=== PATIENT | female | born 1985 | race African-American/Black ===

== ENCOUNTER 2017-06-18 12:41 | Emergency (ER) | payer OTHER ==
[~2017-06-18] VITALS: Ht 157.5 cm; Wt 80.9 kg
[~2017-06-18 12:41] MED LIST: HYDR-4446 PO
[2017-06-18 12:55] VITALS: BP 123/81
--- NOTE | 2017-06-18 13:03 | NUR ---
Pt taken to bed 5.
--- NOTE | 2017-06-18 13:04 | NUR ---
Diana barnes in ED - 06/18/17 at 1350 by MED1 THERESE ROMANO EVALUATING PT AT BEDSIDE.
--- NOTE | 2017-06-18 13:04 | NUR ---
32F BIB SELF C/O RT KNEE PAIN, LOWER BACK, RT WRIST PAIN X 1 MONTH. PT STATES SEES SPECIALIST FOR RT KNEE PAIN; STATES NO RECENT TRAUMA OR INJURY TO SITES AT THIS TIME. HX: GERD. DENIES N/V/D; SKIN IS PINK/WARM/DRY; AAOX4 WITH EVEN AND STEADY GAIT; LUNGS CLEAR BL; HR EVEN AND REGULAR; PT DENIES ANY FEVER, CP, SOB, OR COUGH AT THIS TIME; PATIENT STATES PAIN OF 8/10 AT THIS TIME; VSS; PATIENT POSITIONED FOR COMFORT; HOB ELEVATED; BEDRAILS UP X2; BED DOWN. ER MD MADE AWARE OF PT STATUS.
--- NOTE | 2017-06-18 13:37 | NUR ---
PAIN 5/10 . PT STS : DON'T WANT PAIN MED AT THIS TIME.
[2017-06-18 13:50] VITALS: BP 122/86
== END 2017-06-18 13:50 | disposition home or self-care (01) ==
LOC: MED 12:41
DX: M54.5 Low back pain (principal); K21.9 Gastro-esophageal reflux disease without esophagitis; Z79.899 Other long term (current) drug therapy; Z88.8 Allergy status to other drugs, medicaments and biological substances
CPT/HCPCS: 99283

== ENCOUNTER 2017-09-30 09:41 | Emergency (ER) | payer OTHER ==
[~2017-09-30] VITALS: Ht 157.5 cm; Wt 79.5 kg
[~2017-09-30 09:41] MED LIST changes: +ACET-8386 PO; -HYDR-4446 PO
[2017-09-30 09:45] VITALS: BP 120/88
--- NOTE | 2017-09-30 09:58 | NUR ---
Patient to bed 02.
--- NOTE | 2017-09-30 10:14 | NUR ---
PATIENT PRESENTS TO ED WITH C/O FRONTAL / LEFT TEMPORAL POUNDING TYPE HEADACHE X 3 DAYS;DENIES N/V, NO DIZZINESS, NO RECENT INJURIES, DENIES PHOTOPHOBIA---FULL CLEAR SPEECH, AMBULATORY WITH STEADY GAIT;HX OF INSOMNIA, GERD, ANEMIA;RX OF PEPCID, SEROQUEL (NON COMPLIANT), DEPO-PROVERA . PT STATES SHE HAS BLURRY OF VISSION TOO;SKIN IS PINK/WARM/DRY; AAOX4; LUNGS CLEAR BL; HR EVEN AND REGULAR; PT DENIES ANY FEVER, CP, SOB, OR COUGH AT THIS TIME; PATIENT STATES PAIN OF 8/10 AT THIS TIME;PATIENT POSITIONED FOR COMFORT; HOB ELEVATED; BEDRAILS UP X2; BED DOWN. ALL MONITORS IN PLACED;ER MD MADE AWARE OF PT STATUS.
--- NOTE | 2017-09-30 10:24 | NUR ---
Dr. Wiggins evaluating patient at bedside.
--- NOTE | 2017-09-30 10:34 | NUR ---
Patient discharged with v/s stable. Written and verbal after care instructions given and explained. Patient alert, oriented and verbalized understanding of instructions. Ambulatory with to car. All questions addressed prior to discharge. ID band removed. Patient advised to follow up with PMD. Rx of FIORICET given. Patient educated on indication of medication including possible reaction and side effects. Opportunity to ask questions provided and answered.
[2017-09-30 10:35] VITALS: BP 135/79
== END 2017-09-30 10:34 | disposition home or self-care (01) ==
LOC: MED 09:41
DX: R51 Headache (principal); H53.149 Visual discomfort, unspecified; K21.9 Gastro-esophageal reflux disease without esophagitis; Z79.899 Other long term (current) drug therapy; Z88.8 Allergy status to other drugs, medicaments and biological substances
CPT/HCPCS: 99283

== ENCOUNTER 2017-11-11 10:40 | Emergency (ER) | payer OTHER ==
[~2017-11-11] VITALS: Ht 157.5 cm; Wt 79.9 kg
[2017-11-11 10:47] VITALS: BP 125/84
--- NOTE | 2017-11-11 11:28 | NUR ---
Received ALOX4 with pt stating that she is having flu like symptoms and has her baby with and states that he is having fever as well.
[2017-11-11 13:51] VITALS: BP 135/75
--- NOTE | 2017-11-11 13:53 | NUR ---
Patient discharged with v/s stable. Written and verbal after care instructions given and explained. Patient alert, oriented and verbalized understanding of instructions. Ambulatory with to home. All questions addressed prior to discharge. ID band removed. Patient advised to follow up with PMD. Rx of pREDNISONE given. Patient educated on indication of medication including possible reaction and side effects. Opportunity to ask questions provided and answered.
== END 2017-11-11 13:53 | disposition home or self-care (01) ==
LOC: MED 10:40
DX: J06.9 Acute upper respiratory infection, unspecified (principal); R03.0 Elevated blood-pressure reading, without diagnosis of hypertension; K21.9 Gastro-esophageal reflux disease without esophagitis; Z79.899 Other long term (current) drug therapy; Z88.8 Allergy status to other drugs, medicaments and biological substances
CPT/HCPCS: 99283

== ENCOUNTER 2018-02-10 09:40 | Emergency (ER) | payer OTHER ==
[~2018-02-10] VITALS: Ht 160 cm; Wt 82.6 kg
[2018-02-10 09:54] VITALS: BP 132/70
--- NOTE | 2018-02-10 10:03 | NUR ---
PT AMBULATED TO ER BED 10
--- NOTE | 2018-02-10 10:04 | NUR ---
33/F BIB FAMILY C/O LINDO & cold s/sx x4 days with cough and congestion. DENIES N/V/D; SKIN IS PINK/WARM/DRY; AAOX4 WITH EVEN AND STEADY GAIT; LUNGS CLEAR BL; HR EVEN AND REGULAR; PT DENIES ANY FEVER, CP, SOB, OR COUGH AT THIS TIME; PATIENT STATES PAIN OF8/10 AT THIS TIME.
--- NOTE | 2018-02-10 11:46 | NUR ---
Patient being reevaluated by DR SINGLETARY at bedside.
[2018-02-10 12:45] VITALS: BP 118/90
--- NOTE | 2018-02-10 12:45 | NUR ---
Patient discharged with v/s stable. Written and verbal after care instructions given and explained. Patient verbalized understanding. Ambulatory with steady gait. All questions addressed prior to discharge. Advised to follow up with PMD.
== END 2018-02-10 12:45 | disposition home or self-care (01) ==
LOC: MED 09:40
DX: J06.9 Acute upper respiratory infection, unspecified (principal); K21.9 Gastro-esophageal reflux disease without esophagitis; Z88.6 Allergy status to analgesic agent
CPT/HCPCS: 99283

== ENCOUNTER 2018-03-26 09:53 | Emergency (ER) | payer OTHER ==
[~2018-03-26] VITALS: Ht 160 cm; Wt 81.2 kg
--- NOTE | 2018-03-26 10:02 | NUR ---
TO ER BED 10
[2018-03-26] MEDS ORDERED: KETOROLAC 30 MG/ML VIAL IM ONE (10:10)
[2018-03-26] MEDS ORDERED: ACETAMINOPHEN EXTRA STRENGTH 500 MG TAB PO ONE (10:10)
--- NOTE | 2018-03-26 10:10 | NUR ---
33Y/F BIB SELF C/O LEFT HAND PAIN X 3 DAYS, DENIES TRAUMA/FALL. AAOX4 WITH EVEN AND STEADY GAIT; LUNGS CLEAR BL; HR EVEN AND REGULAR; PT DENIES ANY FEVER, CP, SOB, OR COUGH AT THIS TIME; PATIENT STATES PAIN OF 8/10 AT THIS TIME; VSS; PATIENT POSITIONED FOR COMFORT; HOB ELEVATED; BEDRAILS UP X 1; BED DOWN. ER MD MADE AWARE OF PT STATUS.
--- NOTE | 2018-03-26 10:10 | NUR ---
Patient being evaluated by physician at bedside.
[2018-03-26 10:12] VITALS: BP 131/78
[2018-03-26 10:58] VITALS: BP 130/76
== END 2018-03-26 10:58 | disposition home or self-care (01) ==
LOC: MED 09:53
DX: S63.502A Unspecified sprain of left wrist, initial encounter (principal); S90.122A Contusion of left lesser toe(s) without damage to nail, initial encounter; S90.121A Contusion of right lesser toe(s) without damage to nail, initial encounter; K21.9 Gastro-esophageal reflux disease without esophagitis; Z79.899 Other long term (current) drug therapy; Z88.8 Allergy status to other drugs, medicaments and biological substances; W50.0XXA Accidental hit or strike by another person, initial encounter; Y93.89 Activity, other specified; Y92.89 Other specified places as the place of occurrence of the external cause; Y99.8 Other external cause status
CPT/HCPCS: 29125; 73110; 73660; 81002; 81025; 99284; Q0092; J1885

== ENCOUNTER 2018-04-18 11:37 | Emergency (ER) | payer OTHER ==
[~2018-04-18] VITALS: Ht 157.5 cm; Wt 81.2 kg
[2018-04-18 11:43] VITALS: BP 127/76
--- NOTE | 2018-04-18 11:49 | NUR ---
PT AMBULATED TO BED 11
--- NOTE | 2018-04-18 12:23 | NUR ---
33 YO F BIB SELF W/ C/O DIFFUSE ABD PAIN FOR 3- 4 WEEKS. DENIES N/V/D OR TENDERNESS. REPORTS THE PAIN IS IN HER ENTIRE ABD, CONSTANT, 8-10/10 SHARP AND BURNING THAT RADIATES TO HER FLANKS/LOWER BACK. PT REPORTS HX OVARIAN CYSTS THAT FELT SIMILAR. NO APPETITE CHANGES. PT A&O X 4. GCS 15. CMS INTACT. RR EVEN AND UNLABORED. LUNGS BILAT CLEAR. ER MD KEBEDE NOTIFIED. PT NEEDS MET. SAFETY PRECAUTIONS IN PLACE. WILL CONTINUE TO MONITOR.
--- NOTE | 2018-04-18 13:12 | NUR ---
ER MD KEBEDE AT BEDSIDE AT THIS TIME.
[2018-04-18 14:02] LABS: BASOPHILS # (AUTO) 0.1 K/uL (0.00-0.22); BASOPHILS % (AUTO) 1.2 % (0.0-2.0); EOSINOPHILS # (AUTO) 0.3 K/uL (0-0.4); EOSINOPHILS % (AUTO) 4.2 % (0.0-4.0); HEMATOCRIT 39.8 % (36-48); HEMOGLOBIN 13.1 g/dL (12.0-16.0); LYMPHOCYTES # (AUTO) 2.6 K/uL (2.5-16.5); LYMPHOCYTES % (AUTO) 41.3 % (20.5-51.1); MEAN CORPUSCULAR HEMOGLOBIN 27 pg (27-31); MEAN CORPUSCULAR HGB CONC 33 g/dL (33-37); MEAN CORPUSCULAR VOLUME 82.9 fL (80-94); MONOCYTES # (AUTO) 0.4 K/uL (0.8-1.0); MONOCYTES % (AUTO) 6.7 % (1.7-9.3); NEUTROPHILS # (AUTO) 2.9 K/uL (1.8-7.7); NEUTROPHILS % (AUTO) 46.6 % (42.2-75.2); PLATELET COUNT (AUTO) 294 K/uL (140-450); WHITE BLOOD COUNT (AUTO) 6.2 K/uL (4.8-10.8)
[2018-04-18 14:21] LABS: ALBUMIN 3.8 g/dL (3.4-5.0); ANION GAP 9.7 (8-16); CARBON DIOXIDE 28.1 mmol/L (21-32); CREATININE 0.7 mg/dL (0.6-1.3); POTASSIUM 3.8 mmol/L (3.5-5.1); TOTAL BILIRUBIN 0.2 mg/dL (0.0-1.0)
[2018-04-18 14:26] LABS: APPEARANCE,URINE CLEAR (CLEAR); BILIRUBIN,URINE NEGATIVE (NEGATIVE); BLOOD, URINE TRACE-I (NEGATIVE); COLOR,URINE YELLOW (YELLOW); LEUKOCYTE ESTERASE ,URINE NEGATIVE (NEGATIVE); NITRITE, URINE NEGATIVE (NEGATIVE); PH,URINE 6.5 (5.0-9.0); UGLUCOSE NEGATIVE (NEGATIVE)
[2018-04-18 14:42] LABS: RBC,URINE 0-5 (RARE) /HPF (0-5); WBC,URINE 0-5 (RARE) /HPF (0-5)
--- NOTE | 2018-04-18 16:14 | NUR ---
Patient discharged with v/s stable. Written and verbal after care instructions given and explained. Patient alert, oriented and verbalized understanding of instructions. Ambulatory with steady gait. All questions addressed prior to discharge. ID band removed. Patient advised to follow up with PMD. Rx of PEPCID, COLACE, MIRALAX, AND ZOFRAN given. Patient educated on indication of medication including possible reaction and side effects. Opportunity to ask questions provided and answered.
[2018-04-18 16:16] VITALS: BP 122/78
== END 2018-04-18 16:14 | disposition home or self-care (01) ==
LOC: MED 11:37
DX: N83.201 Unspecified ovarian cyst, right side (principal); K59.00 Constipation, unspecified; K21.9 Gastro-esophageal reflux disease without esophagitis; K80.80 Other cholelithiasis without obstruction; Z88.8 Allergy status to other drugs, medicaments and biological substances; Z79.899 Other long term (current) drug therapy
CPT/HCPCS: 36415; 76705; 76830; 80053; 81001; 81025; 83690; 85025; 93976; 99285; Q0092

== ENCOUNTER 2018-04-26 20:26 | Emergency (ER) | payer OTHER ==
[~2018-04-26] VITALS: Ht 157.5 cm; Wt 81.2 kg
[2018-04-26 20:31] VITALS: BP 142/90
--- NOTE | 2018-04-26 20:38 | NUR ---
TO LOBBY A/W BED, MARIA TERESA WILLARD, MARIVEL NOTED
--- NOTE | 2018-04-26 20:40 | NUR ---
PT C/O L UPPER AND LOWER QUADRANT ABD PAIN 8/10 WORSENING TODAY. WAS SEEN HERE IN ER RECENTLY AND HAD IMAGING DONE THAT FOUND OVARIAN CYSTS BUT LEFT AMA, WAS LATER CALLED BY ED PHYSICIAN AND TOLD SHE NEEDED SURGERY. PATIENT STATES SHE "JUST WANTS TO KNOW IF THIS IS REAL AND DO I NEED SURGERY?" PATIENT IN NO ACUTE DISTRESS, ALERT AND ORIENTED, ON STRETCHER. WILL CONTINUE TO MONITOR CLOSELY.
--- NOTE | 2018-04-26 21:29 | NUR ---
PT TAKEN TO BED 11
[2018-04-26] MEDS ORDERED: NACL 0.9% 1,000 ML IV ONE (22:34)
[2018-04-26] MEDS ORDERED: MORPHINE SULFATE 4 MG/ML SYR IVP ONE (22:35)
--- NOTE | 2018-04-26 22:49 | NUR ---
PATIENT REFUSING IV AND MEDICATIONS. EDMD MADE AWARE.
[2018-04-26 23:29] LABS: BASOPHILS % (AUTO) 0.6 % (0.0-2.0); EOSINOPHILS # (AUTO) 0.2 K/uL (0-0.4); EOSINOPHILS % (AUTO) 2.8 % (0.0-4.0); HEMOGLOBIN 13.8 g/dL (12.0-16.0); LYMPHOCYTES # (AUTO) 3.2 K/uL (2.5-16.5); LYMPHOCYTES % (AUTO) 41.9 % (20.5-51.1); MEAN CORPUSCULAR HEMOGLOBIN 28 pg (27-31); MEAN CORPUSCULAR HGB CONC 34 g/dL (33-37); MONOCYTES # (AUTO) 0.5 K/uL (0.8-1.0); MONOCYTES % (AUTO) 6.7 % (1.7-9.3); NEUTROPHILS # (AUTO) 3.6 K/uL (1.8-7.7); PLATELET COUNT (AUTO) 347 K/uL (140-450); RED CELL DISTRIBUTION WIDTH 14.2 % (11.6-13.7); WHITE BLOOD COUNT (AUTO) 7.6 K/uL (4.8-10.8)
[2018-04-26 23:33] LABS: APPEARANCE,URINE CLEAR (CLEAR); BILIRUBIN,URINE NEGATIVE (NEGATIVE); BLOOD, URINE TRACE-I (NEGATIVE); COLOR,URINE YELLOW (YELLOW); LEUKOCYTE ESTERASE ,URINE NEGATIVE (NEGATIVE); NITRITE, URINE NEGATIVE (NEGATIVE); PH,URINE 5.5 (5.0-9.0); UGLUCOSE NEGATIVE (NEGATIVE)
[2018-04-26 23:39] LABS: ANION GAP 11.6 (8-16); CREATININE 0.7 mg/dL (0.6-1.3); POTASSIUM 3.6 mmol/L (3.5-5.1)
[2018-04-26 23:45] LABS: ALBUMIN 4.1 g/dL (3.4-5.0); TOTAL BILIRUBIN 0.3 mg/dL (0.0-1.0)
[2018-04-26 23:49] LABS: RBC,URINE 0-5 (RARE) /HPF (0-5); WBC,URINE NONE SEEN /HPF (0-5)
[2018-04-26 23:50] LABS: CALCIUM OXALATE CRYSTALS,UR 0-10 /HPF (None Seen)
[2018-04-27 01:50] VITALS: BP 122/72
--- NOTE | 2018-04-27 01:50 | NUR ---
Patient discharged with v/s stable. Written and verbal after care instructions given and explained. Patient alert, oriented and verbalized understanding of instructions. Ambulatory with steady gait. All questions addressed prior to discharge. ID band removed. Patient advised to follow up with PMD. Rx of NORCO AND ZOFRAN given. Patient educated on indication of medication including possible reaction and side effects. Opportunity to ask questions provided and answered.
== END 2018-04-27 01:50 | disposition home or self-care (01) ==
LOC: MED 20:26
DX: K80.20 Calculus of gallbladder without cholecystitis without obstruction (principal); K21.9 Gastro-esophageal reflux disease without esophagitis; Z88.8 Allergy status to other drugs, medicaments and biological substances
CPT/HCPCS: 36415; 76700; 80053; 81001; 81025; 83690; 85025; 99285; Q0092

== ENCOUNTER 2018-05-18 17:22 | Emergency (ER) | payer OTHER ==
[~2018-05-18] VITALS: Ht 127 cm; Wt 83.0 kg
[2018-05-18 17:47] VITALS: BP 125/92
--- NOTE | 2018-05-18 18:02 | NUR ---
PT AMBULATES TO BED 10
--- NOTE | 2018-05-18 18:07 | NUR ---
PER PATIENT, JACQUIEJuan TOLD HER SHE CANT GO FOR SURGERY BECAUSE SHE HAS MRSA. WANTS TO BE TESTED TODAY. ERMD AWARE
--- NOTE | 2018-05-18 18:17 | NUR ---
DR. BUTTERFIELD AT BEDSIDE ASSESSING PATIENT. SPECIMEN COLLECTED
[2018-05-18 18:53] VITALS: BP 120/80
--- NOTE | 2018-05-18 18:53 | NUR ---
Patient discharged with v/s stable. Written and verbal after care instructions given and explained. Patient verbalized understanding. with . All questions addressed prior to discharge. Advised to follow up with PMD.
== END 2018-05-18 18:53 | disposition home or self-care (01) ==
LOC: MED 17:22
DX: Z22.322 Carrier or suspected carrier of Methicillin resistant Staphylococcus aureus (principal); K21.9 Gastro-esophageal reflux disease without esophagitis; Z79.899 Other long term (current) drug therapy; Z88.8 Allergy status to other drugs, medicaments and biological substances
CPT/HCPCS: 87081; 99283

== ENCOUNTER 2018-06-04 19:41 | Emergency (ER) | payer OTHER ==
[~2018-06-04] VITALS: Ht 157.5 cm; Wt 80.7 kg
[2018-06-04 19:46] VITALS: BP 132/81
[2018-06-04] MEDS ORDERED: HYDROcodone/APAP 5/325 MG 1 TAB TAB PO ONE (20:25)
[2018-06-04 20:55] LABS: BASOPHILS # (AUTO) 0.1 K/uL (0.00-0.22); BASOPHILS % (AUTO) 1.3 % (0.0-2.0); EOSINOPHILS # (AUTO) 0.3 K/uL (0-0.4); EOSINOPHILS % (AUTO) 3.9 % (0.0-4.0); HEMATOCRIT 39.7 % (36-48); HEMOGLOBIN 12.9 g/dL (12.0-16.0); LYMPHOCYTES % (AUTO) 41.2 % (20.5-51.1); MEAN CORPUSCULAR HEMOGLOBIN 27 pg (27-31); MEAN CORPUSCULAR HGB CONC 33 g/dL (33-37); MEAN CORPUSCULAR VOLUME 82.9 fL (80-94); MONOCYTES # (AUTO) 0.3 K/uL (0.8-1.0); MONOCYTES % (AUTO) 4.6 % (1.7-9.3); NEUTROPHILS # (AUTO) 3.6 K/uL (1.8-7.7); PLATELET COUNT (AUTO) 316 K/uL (140-450); RED BLOOD CELL COUNT(AUTO) 4.79 MIL/uL (4.20-5.40); RED CELL DISTRIBUTION WIDTH 14.6 % (11.6-13.7); WHITE BLOOD COUNT (AUTO) 7.3 K/uL (4.8-10.8)
[2018-06-04 21:12] LABS: ALBUMIN 4.2 g/dL (3.4-5.0); ANION GAP 14.1 (8-16); CARBON DIOXIDE 26.4 mmol/L (21-32); CREATININE 0.8 mg/dL (0.6-1.3); POTASSIUM 3.5 mmol/L (3.5-5.1); TOTAL BILIRUBIN 0.4 mg/dL (0.0-1.0)
[2018-06-04 21:16] LABS: APPEARANCE,URINE CLEAR (CLEAR); BILIRUBIN,URINE NEGATIVE (NEGATIVE); BLOOD, URINE TRACE-I (NEGATIVE); COLOR,URINE YELLOW (YELLOW); LEUKOCYTE ESTERASE ,URINE NEGATIVE (NEGATIVE); NITRITE, URINE NEGATIVE (NEGATIVE); UGLUCOSE NEGATIVE (NEGATIVE)
[2018-06-04 21:26] LABS: RBC,URINE 0-5 (RARE) /HPF (0-5)
[2018-06-04 22:47] VITALS: BP 128/75
== END 2018-06-04 22:49 | disposition home or self-care (01) ==
LOC: MED 19:41
DX: K80.20 Calculus of gallbladder without cholecystitis without obstruction (principal); K21.9 Gastro-esophageal reflux disease without esophagitis; Z88.6 Allergy status to analgesic agent
CPT/HCPCS: 36415; 76705; 80053; 81001; 81025; 83690; 85025; 87086; 99285; Q0092

== ENCOUNTER 2018-09-16 15:23 | Emergency (ER) | payer OTHER ==
[~2018-09-16] VITALS: Ht 160 cm; Wt 83.5 kg
[2018-09-16 15:38] VITALS: BP 123/88
--- NOTE | 2018-09-16 17:21 | NUR ---
33 YO F BIB SELF W/C/O SOB AND CP SINCE 199. PT STATS R AXILLARY PAIN THAT RADIATES ACROSS RIGHT CHEST TO L SHOULDER. PT STATES FALLING AND LANDING ON FOREARMS ON MONDAY , NO OTHER RECENT TRAUMA OR INJURY . PT WITH GAURDING OF CHEST. -DIAPHRISIS, BRISK CAP REFILL, TACHYCARDIA AT THIS TIME 106. +N/V. PT ALSO C/O LEFT LOWER ABDOMINAL PAIN RADIATING TO LOWER BACK X TODAY. HX: ACID REFLUX, CHOLECYSTECTOMY. MEDS: ABX (UTI), MUSCLE RELAXER AT 299. SKIN IS PINK/WARM/DRY; AAOX4 WITH EVEN AND STEADY GAIT; LUNGS CLEAR BL. PATIENT STATES PAIN 10/ AT THIS TIME; VSS; PATIENT POSITIONED FOR COMFORT; HOB ELEVATED; BEDRAILS UP X2; BED DOWN. ER MADE AWARE OF PT STATUS. Addendum: 09/16/18 at 1901 by [email or web address] PT STATED " I DON'T WANT PAIN MED".
[2018-09-16 18:05] LABS: BASOPHILS # (AUTO) 0.1 K/uL (0.00-0.22); BASOPHILS % (AUTO) 0.5 % (0.0-2.0); EOSINOPHILS # (AUTO) 0.1 K/uL (0-0.4); EOSINOPHILS % (AUTO) 0.7 % (0.0-4.0); HEMATOCRIT 40.6 % (36-48); HEMOGLOBIN 13.3 g/dL (12.0-16.0); LYMPHOCYTES # (AUTO) 1.6 K/uL (2.5-16.5); LYMPHOCYTES % (AUTO) 13.1 % (20.5-51.1); MEAN CORPUSCULAR HEMOGLOBIN 27 pg (27-31); MEAN CORPUSCULAR HGB CONC 33 g/dL (33-37); MEAN CORPUSCULAR VOLUME 81.9 fL (80-94); MONOCYTES # (AUTO) 0.8 K/uL (0.8-1.0); MONOCYTES % (AUTO) 6.3 % (1.7-9.3); NEUTROPHILS # (AUTO) 9.7 K/uL (1.8-7.7); NEUTROPHILS % (AUTO) 79.4 % (42.2-75.2); PLATELET COUNT (AUTO) 298 K/uL (140-450); RED BLOOD CELL COUNT(AUTO) 4.96 MIL/uL (4.20-5.40); RED CELL DISTRIBUTION WIDTH 13.8 % (11.6-13.7); WHITE BLOOD COUNT (AUTO) 12.2 K/uL (4.8-10.8)
[2018-09-16 18:21] LABS: ANION GAP 16.5 (8-16); CARBON DIOXIDE 25.4 mmol/L (21-32); CREATININE 0.8 mg/dL (0.6-1.3); POTASSIUM 3.9 mmol/L (3.5-5.1); PROTHROMBIN TIME 10.4 secs (10.8-13.4)
[2018-09-16 18:26] LABS: ALBUMIN 4.1 g/dL (3.4-5.0); TOTAL BILIRUBIN 0.8 mg/dL (0.0-1.0)
--- NOTE | 2018-09-16 19:06 | NUR ---
Pt report given to EFRAIN KERN. Transfer of care at this time.
--- NOTE | 2018-09-16 19:07 | NUR ---
RECEIVED REPORT FROM MOHAMUD KERN. TRANSFER OF CARE AT THIS TIME.
--- NOTE | 2018-09-16 19:10 | NUR ---
PATIENT RESTING AT THIS TIME. NO SIGNS OF DISTRESS.
[2018-09-16 19:45] VITALS: BP 138/82
--- NOTE | 2018-09-16 19:45 | NUR ---
Patient discharged with v/s stable. Written and verbal after care instructions given and explained. Patient alert, oriented and verbalized understanding of instructions. Ambulatory with steady gait. All questions addressed prior to discharge. ID band removed. Patient advised to follow up with PMD. Rx of VOLTAREN XR 100MG given. Patient educated on indication of medication including possible reaction and side effects. Opportunity to ask questions provided and answered.
== END 2018-09-16 19:45 | disposition home or self-care (01) ==
LOC: MED 15:23
DX: S80.01XA Contusion of right knee, initial encounter (principal); K21.9 Gastro-esophageal reflux disease without esophagitis; Z90.49 Acquired absence of other specified parts of digestive tract; Z88.6 Allergy status to analgesic agent; Z79.1 Long term (current) use of non-steroidal anti-inflammatories (NSAID); W18.30XA Fall on same level, unspecified, initial encounter; Y93.89 Activity, other specified; Y92.89 Other specified places as the place of occurrence of the external cause; Y99.8 Other external cause status
CPT/HCPCS: 36415; 71045; 73562; 80053; 81002; 81025; 82550; 84484; 85025; 85379; 85610; 85730; 93005; 99285; Q0092

== ENCOUNTER 2021-01-29 15:49 | Emergency (ER) | payer OTHER ==
[~2021-01-29] VITALS: Ht 157.5 cm; Wt 85.7 kg
[2021-01-29 15:56] VITALS: BP 119/81
--- NOTE | 2021-01-29 16:10 | NUR ---
PATIENT AMBULATED TO BED 11.
--- NOTE | 2021-01-29 16:12 | NUR ---
36 Y/O FEMALE C/O 08/29 LEFT BREAST/ CHEST PAIN S/P FALL X 3 WEEKS. PT STATES PT STATES TO LEFT BREAST NIPPLE TO AXILLAE. PT STATES HE TOOK TYNENOL WITH NO RELIEF. PMH: C SECTIONS, R ARM & R KNEE SURGERY, GALL BLADDER REMOVAL ALLERGIES TO IBUPROFEN
[2021-01-29] MEDS ORDERED: ACETAMINOPHEN EXTRA STRENGTH 500 MG TAB PO ONE (16:30)
--- NOTE | 2021-01-29 16:35 | NUR ---
Dr. Souza at pt bedside for further evaluation.
[2021-01-29] MEDS ORDERED: ACET-8386 PO (16:50)
--- NOTE | 2021-01-29 16:56 | NUR ---
US tech at pt bedside.
[2021-01-29] MEDS ORDERED: CEPH500C16 PO (17:40)
[2021-01-29 17:58] VITALS: BP 119/81
--- NOTE | 2021-01-29 17:58 | NUR ---
Patient discharged with v/s stable. Written and verbal after care instructions given and explained. Patient alert, oriented and verbalized understanding of instructions. Ambulatory with steady gait. All questions addressed prior to discharge. ID band removed. Patient advised to follow up with PMD. Rx of HYRDROCODONE-ACETAMINOPHEN 5MG-325MG PO Q6H PRN PAIN, AND KEFLEX 500MG TID FOR 10DAYS given. Patient educated on indication of medication including possible reaction and side effects. Opportunity to ask questions provided and answered.
== END 2021-01-29 17:58 | disposition home or self-care (01) ==
LOC: MED 15:49
DX: N60.02 Solitary cyst of left breast (principal); K21.9 Gastro-esophageal reflux disease without esophagitis; Z88.8 Allergy status to other drugs, medicaments and biological substances; Z90.49 Acquired absence of other specified parts of digestive tract
CPT/HCPCS: 76641; 99284

== ENCOUNTER 2022-04-02 12:12 | Emergency (ER) | payer OTHER ==
[~2022-04-02] VITALS: Ht 157.5 cm; Wt 93.9 kg
[~2022-04-02 12:12] MED LIST changes: +CEPH500C16 PO
[2022-04-02 12:35] VITALS: BP 134/91
--- NOTE | 2022-04-02 12:36 | NUR ---
PT AMBULATED TO ER BED 11 FOR BEDSIDE TRIAGE.
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
--- NOTE | 2022-04-02 12:40 | NUR ---
YARELI RODRIGUEZ WITH PT FOR FURTHER EVALUATION.
[2022-04-02] MEDS ORDERED: HYDROcodone/APAP 5/325 MG 1 TAB TAB PO ONE (12:50)
--- NOTE | 2022-04-02 13:07 | NUR ---
PO PAIN MEDS GIVEN-NADR AT THIS TIME
[2022-04-02] MEDS ORDERED: ACET-8386 PO (13:36)
[2022-04-02 13:51] VITALS: BP 121/85
== END 2022-04-02 13:51 | disposition home or self-care (01) ==
LOC: MED 12:12
DX: M79.18 Myalgia, other site (principal); M25.561 Pain in right knee; K21.9 Gastro-esophageal reflux disease without esophagitis; Z79.2 Long term (current) use of antibiotics; Z79.891 Long term (current) use of opiate analgesic; Z88.6 Allergy status to analgesic agent; V89.2XXA Person injured in unspecified motor-vehicle accident, traffic, initial encounter; Y93.89 Activity, other specified; Y92.410 Unspecified street and highway as the place of occurrence of the external cause; Y99.8 Other external cause status
CPT/HCPCS: 73562; 99283

== ENCOUNTER 2024-01-08 10:09 | Emergency (ER) | payer OTHER ==
[~2024-01-08] VITALS: Ht 160 cm; Wt 91.2 kg
[~2024-01-08 10:09] MED LIST changes: -ACET-8386 PO; +ACET-8905 PO
[2024-01-08 10:18] VITALS: BP 149/99; PULSE 98; RESP 18; TEMP 98.8; O2SAT 98
[2024-01-08] MEDS: diazePAM 5 MG TAB PO ONE (11:11)
[2024-01-08 11:36] LABS: BASOPHILS # (AUTO) 0.1 K/uL (0.00-0.22); BASOPHILS % (AUTO) 1.6 % (0.0-2.0); EOSINOPHILS # (AUTO) 0.2 K/uL (0-0.4); EOSINOPHILS % (AUTO) 3.2 % (0.0-4.0); HEMATOCRIT 40.1 % (36-48); HEMOGLOBIN 13.7 g/dL (12.0-16.0); LYMPHOCYTES % (AUTO) 33.9 % (20.5-51.1); MEAN CORPUSCULAR HEMOGLOBIN 28 pg (27-31); MEAN CORPUSCULAR HGB CONC 34 g/dL (33-37); MEAN CORPUSCULAR VOLUME 82.8 fL (80-94); MONOCYTES # (AUTO) 0.4 K/uL (0.8-1.0); MONOCYTES % (AUTO) 6.2 % (1.7-9.3); NEUTROPHILS # (AUTO) 3.3 K/uL (1.8-7.7); NEUTROPHILS % (AUTO) 55.1 % (42.2-75.2); PLATELET COUNT (AUTO) 351 K/uL (140-450); RED BLOOD CELL COUNT(AUTO) 4.85 MIL/uL (4.20-5.40); RED CELL DISTRIBUTION WIDTH 14.3 % (11.6-13.7); WHITE BLOOD COUNT (AUTO) 5.9 K/uL (4.8-10.8)
[2024-01-08 12:06] LABS: ALANINE AMINOTRANSFERASE 17 U/L (12-78); ALBUMIN 3.9 g/dL (3.4-5.0); ALKALINE PHOSPHATASE 84 U/L (50-136); ASPARTATE AMINOTRANSFERASE 13 U/L (15-37); BILIRUBIN,DIRECT 0.1 mg/dL (0.0-0.3); LIPASE 24 U/L (16-77); TOTAL BILIRUBIN 0.6 mg/dL (0.0-1.0); TOTAL PROTEIN, SERUM 9.4 g/dL (6.4-8.2)
[2024-01-08] MEDS ORDERED: CYCL-711 PO (12:59)
[2024-01-08 13:25] VITALS: BP 138/90; PULSE 86; RESP 18; TEMP 98.8; O2SAT 99
== END 2024-01-08 13:25 | disposition home or self-care (01) ==
LOC: MED 10:09
DX: R07.89 Other chest pain (principal); M54.6 Pain in thoracic spine; K21.9 Gastro-esophageal reflux disease without esophagitis; Z79.1 Long term (current) use of non-steroidal anti-inflammatories (NSAID); Z79.899 Other long term (current) drug therapy
CPT/HCPCS: 36415; 71045; 76641; 80076; 83690; 84484; 85025; 85379; 93005; 99285; Q0092

== ENCOUNTER 2024-03-04 11:59 | Emergency (ER) | payer OTHER ==
[~2024-03-04] VITALS: Ht 160 cm; Wt 92.5 kg
[~2024-03-04 11:59] MED LIST changes: +CYCL-711 PO
[2024-03-04 12:34] VITALS: BP 128/76; PULSE 78; RESP 18; TEMP 97.3; O2SAT 100
[2024-03-04 13:24] VITALS: BP 124/78; PULSE 82; RESP 22; O2SAT 98
[2024-03-04] MEDS ORDERED: ACET-503 PO (15:27)
== END 2024-03-04 15:39 | disposition home or self-care (01) ==
LOC: MED 11:59
DX: M25.561 Pain in right knee (principal); R22.41 Localized swelling, mass and lump, right lower limb; I10 Essential (primary) hypertension; K21.9 Gastro-esophageal reflux disease without esophagitis; Z79.1 Long term (current) use of non-steroidal anti-inflammatories (NSAID); Z79.899 Other long term (current) drug therapy; Z90.49 Acquired absence of other specified parts of digestive tract
CPT/HCPCS: 71045; 81025; 93971; 99284; Q0092; 93005

== ENCOUNTER 2024-03-24 12:55 | Emergency (ER) | payer OTHER ==
[~2024-03-24] VITALS: Ht 172.7 cm; Wt 93.4 kg
[~2024-03-24 12:55] MED LIST changes: +ACET-503 PO
[2024-03-24 12:58] VITALS: BP 134/84; PULSE 82; RESP 19; TEMP 98.4; O2SAT 98
[2024-03-24 13:51] LABS: BASOPHILS # (AUTO) 0.2 K/uL (0.00-0.22); BASOPHILS % (AUTO) 2.8 % (0.0-2.0); EOSINOPHILS # (AUTO) 0.5 K/uL (0-0.4); EOSINOPHILS % (AUTO) 8.4 % (0.0-4.0); HEMATOCRIT 41.9 % (36-48); HEMOGLOBIN 14.5 g/dL (12.0-16.0); LYMPHOCYTES # (AUTO) 2.3 K/uL (2.5-16.5); LYMPHOCYTES % (AUTO) 35.6 % (20.5-51.1); MEAN CORPUSCULAR HEMOGLOBIN 29 pg (27-31); MEAN CORPUSCULAR HGB CONC 35 g/dL (33-37); MEAN CORPUSCULAR VOLUME 82.4 fL (80-94); MONOCYTES # (AUTO) 0.3 K/uL (0.8-1.0); MONOCYTES % (AUTO) 4.2 % (1.7-9.3); NEUTROPHILS # (AUTO) 3.2 K/uL (1.8-7.7); PLATELET COUNT (AUTO) 329 K/uL (140-450); RED BLOOD CELL COUNT(AUTO) 5.09 MIL/uL (4.20-5.40); RED CELL DISTRIBUTION WIDTH 14.1 % (11.6-13.7); WHITE BLOOD COUNT (AUTO) 6.5 K/uL (4.8-10.8)
[2024-03-24 14:24] LABS: ALBUMIN 4.4 g/dL (3.4-5.0); ANION GAP 11.3 (8-16); CALCIUM 9.1 mg/dL (8.5-10.1); CARBON DIOXIDE 26.7 mmol/L (21-32); CREATININE 0.8 mg/dL (0.6-1.3); TOTAL BILIRUBIN 0.7 mg/dL (0.0-1.0); TOTAL PROTEIN, SERUM 8.6 g/dL (6.4-8.2)
[2024-03-24 15:04] VITALS: BP 125/84; PULSE 84; RESP 19; TEMP 98.4; O2SAT 98
[2024-03-24] MEDS ORDERED: ATA25 PO (15:08)
== END 2024-03-24 15:28 | disposition home or self-care (01) ==
LOC: MED 12:55
DX: R07.89 Other chest pain (principal); R22.42 Localized swelling, mass and lump, left lower limb; M79.672 Pain in left foot; K21.9 Gastro-esophageal reflux disease without esophagitis; I10 Essential (primary) hypertension; Z79.1 Long term (current) use of non-steroidal anti-inflammatories (NSAID); Z79.899 Other long term (current) drug therapy
CPT/HCPCS: 36415; 71045; 80053; 84484; 85025; 93005; 93971; 99285; Q0092

== ENCOUNTER 2024-05-02 19:08 | Emergency (ER) | payer OTHER ==
[~2024-05-02] VITALS: Ht 160 cm; Wt 90.3 kg
[~2024-05-02 19:08] MED LIST changes: +ATA25 PO
[2024-05-02 19:21] VITALS: BP 156/102; PULSE 82; RESP 20; TEMP 98.4; O2SAT 100
[2024-05-02 20:22] LABS: APPEARANCE,URINE CLEAR (CLEAR); BILIRUBIN,URINE NEGATIVE (NEGATIVE); BLOOD, URINE 3+ (NEGATIVE); COLOR,URINE YELLOW (YELLOW); LEUKOCYTE ESTERASE ,URINE NEGATIVE (NEGATIVE); NITRITE, URINE NEGATIVE (NEGATIVE); PROTEIN,URINE NEGATIVE (NEGATIVE); UGLUCOSE NEGATIVE (NEGATIVE); UROBILINOGEN,URINE 0.2 EU/dL (0.2 - 1)
[2024-05-02 20:37] LABS: BACTERIA,URINE 10-30 (MOD) /HPF (None Seen); SQUAMOUS EPITHELIAL CELL,UR 4-10 (MOD) /LPF (0-3 (FEW)); WBC,URINE 0-5 /HPF (0-5)
[2024-05-03] MEDS ORDERED: PRED20TA5 PO (20:30)
[2024-05-03] MEDS ORDERED: DIPH25TA53 PO (20:30)
[2024-05-03] MEDS ORDERED: ALPR1TAB2 PO (20:52)
== END 2024-05-02 21:16 | disposition home or self-care (01) ==
LOC: MED 19:08
DX: R10.33 Periumbilical pain (principal); N93.9 Abnormal uterine and vaginal bleeding, unspecified; J02.9 Acute pharyngitis, unspecified; K21.9 Gastro-esophageal reflux disease without esophagitis; I10 Essential (primary) hypertension; Z98.890 Other specified postprocedural states; Z90.49 Acquired absence of other specified parts of digestive tract; Z79.1 Long term (current) use of non-steroidal anti-inflammatories (NSAID); Z79.2 Long term (current) use of antibiotics; Z79.899 Other long term (current) drug therapy; Z88.6 Allergy status to analgesic agent
CPT/HCPCS: 81001; 81025; 87086; 99283

== ENCOUNTER 2024-05-03 19:10 | Emergency (ER) | payer OTHER ==
[~2024-05-03] VITALS: Ht 160 cm; Wt 90.3 kg
[2024-05-03 19:17] VITALS: BP 181/109; PULSE 113; RESP 18; TEMP 97.9; O2SAT 100
[2024-05-03] MEDS: lisinopriL 20 MG TAB PO ONE (19:52)
[2024-05-03 19:53] VITALS: BP 180/92; PULSE 113; RESP 16
[2024-05-03 19:54] LABS: BASOPHILS # (AUTO) 0.1 K/uL (0.00-0.22); BASOPHILS % (AUTO) 0.9 % (0.0-2.0); EOSINOPHILS # (AUTO) 0.6 K/uL (0-0.4); EOSINOPHILS % (AUTO) 6.6 % (0.0-4.0); LYMPHOCYTES % (AUTO) 44.2 % (20.5-51.1); MEAN CORPUSCULAR HEMOGLOBIN 28 pg (27-31); MEAN CORPUSCULAR HGB CONC 33 g/dL (33-37); MEAN CORPUSCULAR VOLUME 83.3 fL (80-94); MONOCYTES # (AUTO) 0.6 K/uL (0.8-1.0); MONOCYTES % (AUTO) 6.5 % (1.7-9.3); NEUTROPHILS # (AUTO) 3.8 K/uL (1.8-7.7); NEUTROPHILS % (AUTO) 41.8 % (42.2-75.2); PLATELET COUNT (AUTO) 364 K/uL (140-450); RED BLOOD CELL COUNT(AUTO) 4.68 MIL/uL (4.20-5.40); RED CELL DISTRIBUTION WIDTH 14.1 % (11.6-13.7); WHITE BLOOD COUNT (AUTO) 9.2 K/uL (4.8-10.8)
[2024-05-03] MEDS: NACL 0.9% 1,000 ML IV ONE (20:03)
[2024-05-03 20:08] VITALS: O2SAT 100
[2024-05-03 20:17] LABS: ANION GAP 13.8 (8-16); CALCIUM 9.2 mg/dL (8.5-10.1); CARBON DIOXIDE 26.9 mmol/L (21-32); POTASSIUM 3.7 mmol/L (3.5-5.1)
[2024-05-03] MEDS ORDERED: DIPH25TA53 PO (20:30)
[2024-05-03] MEDS ORDERED: PRED20TA5 PO (20:30)
[2024-05-03] MEDS ORDERED: ALPR1TAB2 PO (20:52)
== END 2024-05-03 21:19 | disposition home or self-care (01) ==
LOC: MED 19:10
DX: N93.9 Abnormal uterine and vaginal bleeding, unspecified (principal); R21 Rash and other nonspecific skin eruption; R11.10 Vomiting, unspecified; R10.30 Lower abdominal pain, unspecified; R42 Dizziness and giddiness; L29.9 Pruritus, unspecified; K21.9 Gastro-esophageal reflux disease without esophagitis; I10 Essential (primary) hypertension; Z90.49 Acquired absence of other specified parts of digestive tract; Z98.890 Other specified postprocedural states; Z79.1 Long term (current) use of non-steroidal anti-inflammatories (NSAID); Z79.899 Other long term (current) drug therapy; Z79.2 Long term (current) use of antibiotics; Z88.6 Allergy status to analgesic agent
CPT/HCPCS: 36415; 80048; 85025; 96360; 99283; J7030

== ENCOUNTER 2024-05-06 10:34 | Emergency (ER) | payer OTHER ==
[~2024-05-06] VITALS: Ht 160 cm; Wt 92.8 kg
[~2024-05-06 10:34] MED LIST changes: +ALPR1TAB2 PO; +DIPH25TA53 PO; +PRED20TA5 PO
[2024-05-06 10:42] VITALS: BP 141/89; PULSE 89; RESP 16; TEMP 98.5; O2SAT 99
[2024-05-06 11:44] LABS: APPEARANCE,URINE CLEAR (CLEAR); BILIRUBIN,URINE NEGATIVE (NEGATIVE); BLOOD, URINE 1+ (NEGATIVE); COLOR,URINE YELLOW (YELLOW); LEUKOCYTE ESTERASE ,URINE NEGATIVE (NEGATIVE); NITRITE, URINE NEGATIVE (NEGATIVE); PROTEIN,URINE NEGATIVE (NEGATIVE); UGLUCOSE NEGATIVE (NEGATIVE); UROBILINOGEN,URINE 0.2 EU/dL (0.2 - 1)
[2024-05-06 11:51] LABS: BACTERIA,URINE FEW /HPF (None Seen); SQUAMOUS EPITHELIAL CELL,UR 0-3 (FEW) /LPF (0-3 (FEW)); WBC,URINE 0-5 /HPF (0-5)
[2024-05-06 13:10] VITALS: BP 148/97; PULSE 76; RESP 16; TEMP 36.94740; O2SAT 99
[2024-05-06] MEDS ORDERED: ACET-10509 PO (13:12)
== END 2024-05-06 13:10 | disposition home or self-care (01) ==
LOC: MED 10:34
DX: D25.9 Leiomyoma of uterus, unspecified (principal); K21.9 Gastro-esophageal reflux disease without esophagitis; I10 Essential (primary) hypertension; Z79.1 Long term (current) use of non-steroidal anti-inflammatories (NSAID); Z79.2 Long term (current) use of antibiotics; Z79.899 Other long term (current) drug therapy; Z88.6 Allergy status to analgesic agent
CPT/HCPCS: 76830; 81001; 81025; 99284; Q0092

== ENCOUNTER 2024-07-03 02:30 | Emergency (ER) | payer OTHER ==
[~2024-07-03] VITALS: Ht 160 cm; Wt 90.7 kg
[~2024-07-03 02:30] MED LIST changes: +ACET-10509 PO
[2024-07-03 02:33] VITALS: BP 139/91; PULSE 89; RESP 16; TEMP 96.9; O2SAT 99
[2024-07-03 02:35] VITALS: BP 124/81; PULSE 78; RESP 14; TEMP 98.2; O2SAT 98
[2024-07-03 03:32] LABS: APPEARANCE,URINE CLEAR (CLEAR); BILIRUBIN,URINE NEGATIVE (NEGATIVE); BLOOD, URINE 1+ (NEGATIVE); COLOR,URINE YELLOW (YELLOW); LEUKOCYTE ESTERASE ,URINE NEGATIVE (NEGATIVE); NITRITE, URINE NEGATIVE (NEGATIVE); PROTEIN,URINE NEGATIVE (NEGATIVE); UGLUCOSE NEGATIVE (NEGATIVE); UROBILINOGEN,URINE 0.2 EU/dL (0.2 - 1)
[2024-07-03 03:35] LABS: BACTERIA,URINE 10-30 (MOD) /HPF (None Seen); MUCUS,URINE 1+ /LPF (None Seen); SQUAMOUS EPITHELIAL CELL,UR 0-3 (FEW) /LPF (0-3 (FEW)); WBC,URINE 0-5 /HPF (0-5)
[2024-07-03 03:56] LABS: BASOPHILS # (AUTO) 0.1 K/uL (0.00-0.22); BASOPHILS % (AUTO) 0.9 % (0.0-2.0); EOSINOPHILS # (AUTO) 0.7 K/uL (0-0.4); EOSINOPHILS % (AUTO) 7.1 % (0.0-4.0); HEMATOCRIT 37.2 % (36-48); HEMOGLOBIN 12.4 g/dL (12.0-16.0); LYMPHOCYTES # (AUTO) 3.2 K/uL (2.5-16.5); MEAN CORPUSCULAR HEMOGLOBIN 28 pg (27-31); MEAN CORPUSCULAR HGB CONC 33 g/dL (33-37); MEAN CORPUSCULAR VOLUME 83.3 fL (80-94); MONOCYTES # (AUTO) 0.7 K/uL (0.8-1.0); NEUTROPHILS # (AUTO) 5.1 K/uL (1.8-7.7); PLATELET COUNT (AUTO) 309 K/uL (140-450); RED BLOOD CELL COUNT(AUTO) 4.46 MIL/uL (4.20-5.40); RED CELL DISTRIBUTION WIDTH 14.3 % (11.6-13.7); WHITE BLOOD COUNT (AUTO) 9.7 K/uL (4.8-10.8)
[2024-07-03 04:45] LABS: ALBUMIN 3.7 g/dL (3.4-5.0); ANION GAP 12.6 (8-16); CALCIUM 9.4 mg/dL (8.5-10.1); CARBON DIOXIDE 26.6 mmol/L (21-32); POTASSIUM 4.2 mmol/L (3.5-5.1); TOTAL BILIRUBIN 0.4 mg/dL (0.0-1.0); TOTAL PROTEIN, SERUM 7.5 g/dL (6.4-8.2)
== END 2024-07-03 05:36 | disposition home or self-care (01) ==
LOC: MED 02:30
DX: M79.604 Pain in right leg (principal); F41.9 Anxiety disorder, unspecified; K21.9 Gastro-esophageal reflux disease without esophagitis; I10 Essential (primary) hypertension; Z79.899 Other long term (current) drug therapy; Z88.6 Allergy status to analgesic agent
CPT/HCPCS: 36415; 80053; 81001; 81025; 85025; 85379; 87086; 93005; 99284

== ENCOUNTER 2024-07-20 15:22 | Emergency (ER) | payer OTHER ==
[~2024-07-20] VITALS: Ht 154.9 cm; Wt 91.3 kg
[~2024-07-20 15:22] MED LIST changes: -ACET-10509 PO; +ACET500T99 PO
[2024-07-20 15:44] VITALS: BP 142/85; PULSE 81; RESP 19; TEMP 98.4; O2SAT 100
--- NOTE | 2024-07-20 16:58 | NUR ---
NURSING ASSESSMENT COMPLETED. DR FONTANA AT BEDSIDE, MSE COMPLETED.
[2024-07-20] MEDS ORDERED: CEPH-588 PO (17:19)
[2024-07-20] MEDS ORDERED: HYD1C TP (17:19)
[2024-07-20 17:25] VITALS: BP 142/85; PULSE 81; RESP 19; TEMP 98.4; O2SAT 100
--- NOTE | 2024-07-20 17:25 | NUR ---
Patient discharged with v/s stable. Written and verbal after care instructions given and explained. Patient alert, oriented and verbalized understanding of instructions. Ambulatory with steady gait. All questions addressed prior to discharge. ID band removed. Patient advised to follow up with PMD. Rx of KEFLEX, CORTISONE CREAM given. Patient educated on indication of medication including possible reaction and side effects. Opportunity to ask questions provided and answered.
== END 2024-07-20 17:25 | disposition home or self-care (01) ==
LOC: MED 15:22
DX: L03.114 Cellulitis of left upper limb (principal); L03.116 Cellulitis of left lower limb; M79.604 Pain in right leg; M79.605 Pain in left leg; K21.9 Gastro-esophageal reflux disease without esophagitis; I10 Essential (primary) hypertension; Z90.49 Acquired absence of other specified parts of digestive tract; Z98.890 Other specified postprocedural states; Z79.899 Other long term (current) drug therapy; Z88.6 Allergy status to analgesic agent
CPT/HCPCS: 99283

== ENCOUNTER 2024-08-22 22:12 | Emergency (ER) | payer OTHER ==
[~2024-08-22] VITALS: Ht 157.5 cm; Wt 86.6 kg
[~2024-08-22 22:12] MED LIST changes: +CEPH-588 PO; +HYD1C TP
[2024-08-22 22:31] VITALS: BP 165/99; PULSE 77; RESP 18; TEMP 98; O2SAT 100
[2024-08-23] MEDS: DEXAMETHASONE 4 MG/ML VIAL IM ONE (00:37)
[2024-08-23 00:53] VITALS: BP 156/87; PULSE 83; RESP 18; TEMP 98.1; O2SAT 100
== END 2024-08-23 00:53 | disposition home or self-care (01) ==
LOC: MED 22:12
DX: J04.0 Acute laryngitis (principal); K21.9 Gastro-esophageal reflux disease without esophagitis; I10 Essential (primary) hypertension; F41.9 Anxiety disorder, unspecified; Z79.899 Other long term (current) drug therapy; Z88.6 Allergy status to analgesic agent
CPT/HCPCS: 96372; 99283; J1100